=== PATIENT | male | born 2000 | race Two or more races ===

== ENCOUNTER 2025-06-02 19:00 | Emergency (ER) | payer OTHER ==
[~2025-06-02] VITALS: Ht 188 cm; Wt 104.4 kg
[2025-06-02 20:34] VITALS: BP 130/78; PULSE 70; RESP 18; TEMP 98; O2SAT 96
--- NOTE | 2025-06-02 20:44 | DVH ---
EXAM: XY LUMBAR SPINE 3 VIEW HISTORY: LOW BACK PAIN COMPARISON: None TECHNIQUE: AP and lateral views of the lumbar spine and spot lateral of the lumbosacral junction were performed. FINDINGS: No fracture or listhesis of the lumbar spine. No significant degenerative changes. No significant de generative change. IMPRESSION: 1. Unremarkable radiographs of the lumbar spine.
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
[2025-06-02] MEDS: KETOROLAC TROMETH 60MG/2ML VIAL IM ONE (20:48)
[2025-06-02] MEDS ORDERED: TIZA-142 PO (21:18)
[2025-06-02] MEDS ORDERED: METH4PAK PO (21:18)
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
== END 2025-06-02 21:31 | disposition home or self-care (01) ==
LOC: ER 19:00
DX: S39.012A Strain of muscle, fascia and tendon of lower back, initial encounter (principal); S20.212A Contusion of left front wall of thorax, initial encounter; V49.49XA Driver injured in collision with other motor vehicles in traffic accident, initial encounter; Y93.89 Activity, other specified; Y92.89 Other specified places as the place of occurrence of the external cause; Y99.8 Other external cause status
CPT/HCPCS: 71101; 72100; 96372; 99284; J1885